=== PATIENT | male | born 1995 | race Asian ===

== ENCOUNTER 2023-09-11 12:56 | Day surgery (SDC) | payer OTHER ==
[~2023-09-11] VITALS: Ht 177.8 cm; Wt 96.8 kg
[~2023-09-11 12:56] MED LIST: GLYCOPYRROLATE INJ 0.2 MG/ML 2 ML VIAL As Ordered ONE; LIDOCAINE 2% 100MG/5ML SDV (FOR ANES.) As Ordered ONE; NS 1,000 ML IV ONE; propofoL 200 MG/20 ML VIAL As Ordered ONE
[2023-09-11 14:02] VITALS: TEMP 96.8
[2023-09-11 14:19] VITALS: BP 121/85; O2SAT 100
[2023-09-12] MEDS ORDERED: DESFLURANE 240 ML INHALANT As Ordered ONE (00:30)
[2023-09-12] MEDS ORDERED: SEVOFLURANE INHAL SOLN 250 ML BTL As Ordered ONE (00:32)
== END 2023-09-11 14:28 | disposition home or self-care (01) ==
LOC: M OPP 12:56
PROVIDERS: ATTEND Internal Medicine Gastroenterology
DX: K29.70 Gastritis, unspecified, without bleeding (principal); R11.2 Nausea with vomiting, unspecified